=== PATIENT | female | born 1970 | race Caucasian/White ===

== ENCOUNTER → 2018-04-24 10:20 | Outpatient (CLI) | payer OTHER, SELFPAY ==
--- NOTE | 2018-04-24 10:20 | DT_ITS ---
This patient was seen during an EMR downtime April 17, 2018 - April 24, 2018. This patient may have a combination of paper and electronic documentation or all paper documentation. All documentation is viewable within the e-chart portion of [employer] for each patient visit.
[2018-05-03 11:24] LABS: HPV Reflexed? NOT INDICATED
== END ==
PROVIDERS: Family Provider Family Medicine; PCP Family Medicine; Visit Provider Family Medicine
DX: Z12.4 Encounter for screening for malignant neoplasm of cervix (principal)
CPT/HCPCS: 88175; G0145

== ENCOUNTER → 2018-04-29 09:21 | Outpatient (CLI) | payer OTHER, SELFPAY ==
--- NOTE | 2018-04-29 09:24 | BI_ITS ---
MAMMOGRAPHY - BILATERAL SCREENING REASON FOR EXAM: Female, 47 years old. Routine annual screening examination. PERTINENT HISTORY: Non-contributory. TECHNIQUE: Digital bilateral breast sergey (3D mammographic acquisition) in the CC and MLO projections. 2-D mediolateral oblique (MLO) and craniocaudad (CC) views of both breasts were obtained. CAD: Full Field Digital Mammography with Computer Added Detection was performed. COMPARISON: Comparison is made with prior examination dated September 14, 2013. FINDINGS: Breast Composition: The breasts are heterogeneously dense, which may obscure small masses. There are no dominant masses or suspicious calcifications. No other significant abnormalities are identified. There has been no significant change since the prior study. BI/SCREENING MAMM (CAD), BILAT IMPRESSION: Stable bilateral screening mammogram. Yearly follow-up mammogram recommended. (A) ASSESSMENT CATEGORY: BIRADS Category 1: Negative. A letter regarding these results will be sent to the patient by the facility within 30 days. Approximately 10% of breast cancers are not detected by mammography. A normal mammogram should not delay biopsy of a clinically suspicious abnormality. [id number] Electronically Signed: Barney Rawls MD at 9:18 EDT Tel [phone], Service support ,
== END ==
PROVIDERS: Family Provider Family Medicine; PCP Family Medicine; Visit Provider Family Medicine
DX: Z12.31 Encounter for screening mammogram for malignant neoplasm of breast (principal)
CPT/HCPCS: 77063; 77067

== ENCOUNTER → 2019-05-03 | Outpatient (CLI) | payer OTHER, SELFPAY ==
[2019-05-03 14:37] LABS: Absolute Lymphocyte Count 1.92 X10^3/ul (0.83-4.51); Absolute Neutrophil Count 3.6 X10^3/uL (2.0-7.7); Basophil# 0.03 X10^3/uL; Basophil% 0.5 % (0-1); Eosinophil# 0.13 X10^3/uL; Eosinophils% 2.1 % (0-5); Hematocrit 38.6 % (37-47); Hemoglobin 12.8 g/dl (12.0-15.0); Lymphocyte # 1.92 X10^3/ul (4.0); Lymphocyte % 31.6 % (19-41); Mean Corp Hgb Conc 33.2 g/gl (32-36); Mean Corpuscular Volume 90.6 fL (81-99); Mean Platelet Vol. 10.6 fl (6.2-12.0); Monocyte# 0.36 X10^3/uL; Monocyte% 5.9 % (0-10); Neutrophil # 3.63 X10^3/uL (2.7-7.7); Neutrophil % 59.7 % (47-70); Platelet Count 257 K/mm3 (150-450); RBC Distribution Width CV 13.3 % (11.6-14.6); RBC Distribution Width SD 43.4 fl (35.1-43.9); Red Blood Count 4.26 M/mm3 (4.2-5.4); White Blood Count 6.1 K/mm3 (4.4-11.0)
[2019-05-03 14:38] LABS: POSITIVE COUNT NO; POSITIVE DIFFERENTIAL NO; POSITIVE MORPHOLOGY NO
[2019-05-03 14:51] LABS: ALB/GLOB Ratio 1.1 RATIO (0.9-2.4); AST(SGOT) 20 U/L (15-37); Alanine Aminotransfer ALT/SGPT 22 U/L (13-56); Albumin, Serum 3.5 g/dL (3.2-5.0); Alkaline Phosphatase 86 U/L (45-117); Anion Gap 4 (5-15); BUN 15 mg/dL (7-18); BUN/Creat Ratio 14.7 RATIO (10-20); Calcium,Total 8.3 mg/dL (8.5-10.1); Chloride 105 mmol/L (98-107); Cholesterol 173 mg/dL (200); Creatinine, Serum 1.02 mg/dL (0.55-1.02); EST Glomerular Filtration Rate 61 mL/min (>60); Est Glom Filt Rate - Afr Amer 74 mL/min (>60); Globulin 3.2 g/dL (2.2-4.2); Glucose 85 mg/dL (74-106); High Density Lipoprotein 68 mg/dL; Protein, Total 6.7 g/dL (6.4-8.2); Sodium Level 137 mmol/L (136-145); Triglycerides 62 mg/dL; Very Low Density Lipoprotein 12 mg/dL (5-40)
== END | disposition home or self-care (01) ==
LOC: MTLAB 12:52
PROVIDERS: Family Provider Family Medicine; PCP Family Medicine; Referring Provider Nurse Practitioner Adult Health; Visit Provider Nurse Practitioner Adult Health
DX: R53.83 Other fatigue (principal); Z13.220 Encounter for screening for lipoid disorders
CPT/HCPCS: 36415; 80053; 80061; 84443; 85025

== ENCOUNTER → 2019-05-18 | Outpatient (CLI) | payer OTHER, SELFPAY ==
--- NOTE | 2019-05-18 12:18 | BI_ITS ---
MAMMOGRAPHY - BILATERAL SCREENING REASON FOR EXAM: Female, 48 years old. Routine annual screening examination. PERTINENT HISTORY: Non-contributory. TECHNIQUE: Digital bilateral breast katelynn (3D mammographic acquisition) in the CC and MLO projections. 2-D mediolateral oblique (MLO) and craniocaudad (CC) views of both breasts were obtained. CAD: Full Field Digital Mammography with Computer Added Detection was performed. COMPARISON: Comparison is made with prior study dated April 29, 2018. FINDINGS: Breast Composition: The breasts are heterogeneously dense, which may obscure small masses. There are no dominant masses or suspicious calcifications. No other significant abnormalities are identified. There has been no significant change since the prior study. BI/SCREEN MAMM (CAD) W/KATELYNN BILAT IMPRESSION: Stable bilateral screening mammogram. Yearly follow-up mammogram recommended. (A) ASSESSMENT CATEGORY: BIRADS Category 1: Negative. A letter regarding these results will be sent to the patient by the facility within 30 days. Approximately 10% of breast cancers are not detected by mammography. A normal mammogram should not delay biopsy of a clinically suspicious abnormality. [id number] Electronically Signed: Barney Rawls, at 14:53 EDT , Service support ,
== END | disposition home or self-care (01) ==
LOC: OPBI 12:17
PROVIDERS: Family Provider Family Medicine; PCP Family Medicine; Referring Provider Nurse Practitioner Adult Health; Visit Provider Nurse Practitioner Adult Health
DX: Z12.31 Encounter for screening mammogram for malignant neoplasm of breast (principal)
CPT/HCPCS: 77063; 77067

== ENCOUNTER → 2019-06-11 | Outpatient (CLI) | payer OTHER, SELFPAY ==
--- NOTE | 2019-06-11 08:57 | US_ITS ---
STUDY: ABDOMINAL ULTRASOUND - RIGHT UPPER QUADRANT REASON FOR VISIT: Female, 48 years old. Right-sided abdominal pain. TECHNIQUE: Ultrasound evaluation of the right upper quadrant was performed with real-time and static calle-scale imaging. TECHNICAL QUALITY: Adequate. COMPARISON: None. FINDINGS: Liver: The liver measures 14.7 cm. There is increased echogenicity consistent with fatty infiltration. The bile ducts are within normal limits. There is hepatic color flow. The direction of portal flow is hepatopetal. There is a 4.1 cm x 2.4 cm x 2.6 cm septated cyst in the dome of the right lobe of the liver. There is also evidence of a 3.2 cm x 3.3 cm x 2.9 cm cyst in the inferior aspect of the right lobe of the liver. A third cyst measuring 1.7 cm x 1.7 cm x 1 cm is seen in the left liver. Gallbladder: Normal distended gallbladder. The gallbladder wall measures 2.0 mm. There is a negative sonographic Angeles's sign. There is no pericholecystic fluid. There are no gallstones. Common Bile Duct (C.B.D.): The common bile duct measures 2.2 mm. Pancreas: Normal size of the head, body and tail of the pancreas. There is normal echogenicity of the pancreas. There is no demonstrated pancreatic mass or cyst. Right Kidney: Normal size of the right kidney. The right kidney measures 10.6 cm x 5.6 cm x 4.8 cm. Normal renal cortex. The right cortex measures 1.6 cm. There is no demonstrated renal mass or cyst. There is no right hydronephrosis. US/Abdomen Limited IMPRESSION: Hepatic cysts. Electronically Signed: Barney Rawls, at 9:42 EDT , Service support ,
== END | disposition home or self-care (01) ==
LOC: US 08:51
PROVIDERS: Family Provider Family Medicine; PCP Family Medicine; Referring Provider Nurse Practitioner Adult Health; Visit Provider Nurse Practitioner Adult Health
DX: R10.9 Unspecified abdominal pain (principal)
CPT/HCPCS: 76705

== ENCOUNTER → 2019-06-29 | Outpatient (CLI) | payer OTHER, SELFPAY ==
--- NOTE | 2019-06-29 11:03 | RAD_ITS ---
STUDY: X-RAY - LUMBAR SPINE REASON FOR EXAM: Female, 48 years old. Pain TECHNIQUE: 5 view(s) of the lumbar spine were obtained. COMPARISON: None FINDINGS: There is no evidence of fracture or dislocation in the lumbar spine. The vertebral body heights are well-maintained. Mild degenerative changes are present from the L4-S1 level. RAD/L/S Spine Min 4 Views IMPRESSION: No fracture or dislocation in the lumbar spine. Mild degenerative changes from L4 through S1. Electronically Signed: Minor Saldana, at 18:39 EDT Tel , Service support ,
== END | disposition home or self-care (01) ==
LOC: MTRAD 11:03
PROVIDERS: Family Provider Family Medicine; PCP Family Medicine; Referring Provider Family Medicine; Visit Provider Family Medicine
DX: M46.1 Sacroiliitis, not elsewhere classified (principal)
CPT/HCPCS: 72110

== ENCOUNTER → 2019-09-03 16:28 | Outpatient (CLI) | payer OTHER, SELFPAY ==
--- NOTE | 2019-09-03 16:37 | CT_ITS ---
STUDY: CT ABDOMEN AND PELVIS WITH CONTRAST REASON FOR EXAM: Female, 49 years old. Pain RADIATION DOSAGE (If Supplied By Facility): DLP = ( 960.57 ) mGycm TECHNIQUE: Transaxial images were obtained from the dome of the diaphragm to the symphysis pubis with oral contrast. 100ml ml of Isovue 370 contrast was administered. Sagittal and coronal images were reconstructed. Individualized dose optimization techniques were used for this CT. COMPARISON: None. FINDINGS: The visualized lung bases are clear. The visualized portions of the heart and pericardium are within normal limits. There are no calcified gallstones present. The liver is within normal limits. There are no suspicious hepatic lesions. Scattered hepatic cysts are present. The spleen is normal in size. The pancreas is within normal limits. The adrenal glands are within normal limits. There are no obstructing renal stones. There is no hydronephrosis. There are no focal renal lesions. Normal visualized stomach. There is no bowel obstruction or inflammation. Multiple masses are present within the uterine, likely fibroids. There are multiple bilateral adnexal cysts, measuring up to 4.4 cm on the right and 4.1 cm on the left. The aorta is normal in caliber. There is no abdominal or pelvic free air, free fluid, fluid collection or lymphadenopathy. There are no destructive osseous lesions. CT/Abdomen/Pelvis WITH Contrast IMPRESSION: Multiple masses within the uterus, likely fibroids. Multiple bilateral adnexal cysts, measuring up to 4.4 mm on the right and 4.1 cm on the left. Pelvic ultrasound and gynecological consultation is recommended for further evaluation of the above findings. Electronically Signed: Minor Saldana, at 19:20 EDT Tel , Service support ,
== END ==
PROVIDERS: Family Provider Family Medicine; PCP Family Medicine; Referring Provider Family Medicine; Visit Provider Family Medicine
DX: R10.9 Unspecified abdominal pain (principal)
CPT/HCPCS: 74177; Q9967

== ENCOUNTER 2019-09-27 08:18 | Day surgery (SDC) | payer OTHER, SELFPAY ==
--- NOTE | 2019-09-26 21:52 | PCM.HP.BLA ---
History and Physical Date of Admission: 09/27/19 Pre-Op History and Physical ? HPI: The patient is a 49 year old female presenting for pre-operative visit. She is scheduled for?laparoscopic hysterectomy, right salpingo-oophorectomy, left salpingectomy, mid urethral sling, and cystoscopy, for?menorrhagia, right ovarian cyst, chronic pelvic pain, intramural uterine fibroids, stress urinary incontinence on?09/27/19. ??Procedure discussed along with risks, benefits and complications. ?Other alternatives discussed for management. Consent form signed??Yes.? PAST MEDICAL HISTORY PAST MEDICAL HISTORY Diagnosis Date ? Abdominal pain, epigastric ? ? Esophageal reflux ? ? Non-alcoholic fatty liver disease ? ? 3 cysts on liver ? Premenopausal menorrhagia ? ? ? PAST SURGICAL HISTORY PAST SURGICAL HISTORY Procedure Laterality Date ? DELIVERY ONLY ? ? ? , low cervical x 2 ? PAST SURGICAL HISTORY OF ? ? ? left knee surgery ? REMOVAL OF TONSILS,<12 Y/O ? ? ? Tonsillectomy and adnoids ? ? CURRENT MEDICATIONS Current Outpatient Medications Medication Sig Dispense Refill ? folic acid/multivit-min/lutein (CENTRUM SILVER ORAL) Take by mouth. ? ? ? docosahexanoic acid/epa (FISH OIL ORAL) Take by mouth. ? ? ? GARLIC ORAL Take by mouth. ? ? ? PREVACID 30 MG CAP Take one(1) capsule daily. ? 0 ? No current facility-administered medications for this visit.? ? ALLERGIES:?Patient has no known allergies. ? PERSONAL HISTORY:? SOCIAL HISTORY Social History ? Tobacco Use ? Smoking status: Never Smoker ? Smokeless tobacco: Never Used Substance Use Topics ? Alcohol use: Yes ? ? Comment: 1 or 2 times a week ? Drug use: Never ? FAMILY HISTORY:? FAMILY HISTORY FAMILY HISTORY Problem Relation Age of Onset ? other (abdominal ?pain) Mother ? ? other (polyps colon) Mother ? ? Heart Father ? ? other (colonic polyps) Father ? ? Colon Cancer Maternal Aunt ? ? REVIEW OF SYMPTOMS: GENERAL: denies fevers or chills ENDOCRINOLOGY: has not been on steroids Cardiology : denies palpitations or chest pain Respiratory: denies SOB or cough Hematology: denies history of prolonged bleeding or easy bruising or VTE Allergy: Denies history of personal or family history of allergy to anesthesia ? ? PHYSICAL EXAMINATION: ? VITALS:?Last menstrual period 09/09/2019. ? GENERAL:??The patient is well nourished, well hydrated in no acute distress. ?, The patient is oriented to time, place, and person. NECK:?Supple. No lynphadenopathy, normal thyroid, no thyromegaly. LUNGS:?Clear to auscultation bilaterally. no wheezes, rhonchi or rales HEART:?Regular rate and rhythm, Normal heart sounds and No murmurs or gallops ? Pelvic US done 09/14/19 The uterus measures 14.3 x 4.9 x 7.9 cm. ?The endometrial echocomplex measures 4 mm in thickness. ?A large fibroid at the upper uterine body and fundus measures 5.6 x 4.3 x 5.4 cm. ?Portions of the remainder of the uterus are heterogeneous with possible additional fibroids although the margins are difficult to delineate. RIGHT OVARY/ADNEXA: The right ovary measures 5.2 x 2.6 x 3.2 cm. ?Complex cystic lesion measuring 3.3 x 2.4 x 2.6 cm has diffuse slight increased echogenicity and increased through transmission. LEFT OVARY/ADNEXA: The left ovary measures 3.4 x 2.7 x 3 cm. ?Simple cyst measures 1.6 x 1.2 x 1.4 cm. ? EMB- 09/19/19 proliferative endometrium PAP 05/14/18-negative ? ? IMPRESSION:?Intramural and sudden serosal uterine fibroids, menorrhagia, pelvic pain, complex right ovarian cyst, stress urinary incontinence ? PLAN:???Risks benefits and alternatives to total laparoscopic hysterectomy with bilateral salpingectomy, right oophorectomy, mid urethral sling and cystoscopy were reviewed. ?Patient's questions were answered to her satisfaction she desires to proceed. ?We discussed vaginal morecellation?or bivalving of the uterus and risks vs benefits of this.??We discussed this as an option over extending the incision and removing the uterus through mini laparotomy or morcellating in a bag laparoscopically. ?Patient would like to proceed with removal of the specimen vaginally. ? I have reviewed and updated past medical and surgical history, medications and allergies? this history and physical was completed in my office on 09/26/2019.
[2019-09-27] VITALS (7 sets, daily range): BP systolic 98–138; BP diastolic 66–89; PULSE 46–67; RESP 15–16; TEMP 36.2–37.1; O2SAT 97–100; BMI 30.2
[2019-09-27] MEDS: Lactated Ringers 1,000 ML 40 ML IV ×2 (07:00→11:49)
--- NOTE | 2019-09-27 08:30 | EKG12_ITS ---
Test Reason : PREOP Blood Pressure : / mmHG Vent. Rate : 060 BPM Atrial Rate : 060 BPM P-R Int : 164 ms QRS Dur : 090 ms QT Int : 430 ms P-R-T Axes : 043 012 044 degrees QTc Int : 430 ms Normal sinus rhythm Normal ECG Confirmed by MATT PHILLIP, BRYN ([id number]), social media editor BRONSON HARVEY ([id number]) on 10/02/2019 2:08:36 PM Referred By: Sara Fuentes Confirmed By:BRYN GUTIERREZ MD
[2019-09-27 08:47] LABS: Internal QC Validated? YES +Cl - CLEAR BKGD; Pregnancy, Urine Negative Negative
[2019-09-27 09:01] LABS: Bedside Glucose 61 mg/dL (70-110)
[2019-09-27] MEDS: Celecoxib 200 MG Capsule 400 MG PO (09:13)
[2019-09-27] MEDS: Enoxaparin 40 MG/0.4 ML Syringe SC (09:13)
[2019-09-27] MEDS: Phenazopyridine 95 MG Tablet 190 MG PO (09:14)
[2019-09-27] MEDS: Acetaminophen 500 MG Tablet 1000 MG PO (09:15)
[2019-09-27] MEDS: Gabapentin 600 MG Tablet PO (09:16)
[2019-09-27] MEDS: dexAMETHasone 10 MG/ML Vial 8 MG IV (09:22)
[2019-09-27] MEDS: Magnesium Sulfate 4gm/100mL 4 GM/100 ML IV.SOLN. IV (09:24)
[2019-09-27] MEDS: Scopolamine 1mg/72hr Patch 1 PATCH TRANSDERM. (09:30)
[2019-09-27] MEDS: Lubricating Jelly 60 GM Tube 30 GM TOPICAL (09:45)
[2019-09-27] MEDS: Cefazolin 2 GM in 0.9% Normal Saline 100 ML IV (10:17)
--- NOTE | 2019-09-27 11:20 | OP.PCM_ITS ---
Report of Operation Date of Procedure: 09/27/19 Pre-Operative Diagnosis: pelvic pain, dysmenorrhea, right ovarian cyst, TREVOR Post-Operative Diagnosis: same + endometriosis of bilateral ovaries with adhesions between cervix and rectum Surgery/Procedure Performed:: diagnostic laparascopy Description of Surgical Findings:: Enlarged boggy uterus, some adhesions of the anterior uterus to the anterior abdominal wall and bladder, dense adhesions of rectum to ovaries and tubes, fimbriated ends of tubes and ovaries could not even be clearly visualized because of adhesions. Normal-appearing cervix and vagina. sap bi architect: Glenna Pedraza Type of Anesthesia:: General Anesthesiologist: Paras Olivarez Special Medications: none Specimen's removed: none Drains: none Estimated Blood Loss (mL): 10 Fluids Replaced: 1000 cc Description of Procedure: The patient was taken to the operating room where she was prepped and draped in the dorsolithotomy position. A weighted speculum was placed in the vagina and the anterior lip of the cervix was grasped with a tenaculum. The Fahad cup uterine manipulator was placed, and inserted, and sutures attached to the cervix. The remainder of the instruments were removed from the vagina. Attention was turned to the abdomen. All port sites were infiltrated with 0.5% Marcaine before skin incisions were made. A 5 mm midline incision was made only 3 cm above the umbilicus. The anterior abdominal wall was tented up with 2 towel clamps while a 5 mm blade less trocar and sleeve were [directly inserted]. Intraperitoneal placement was confirmed with the laparoscope. The pneumoperitoneum was created and the underlying abdominal contents were intact. The patient was placed in Trendelenburg. Right and left lower quadrant ports were placed under direct visualization lateral to the inferior epigastric vessels. The bowel was swept away and the above findings were noted. After inspection of the abdominal contents, I left the room and spoke with the patient's , Endy. I discussed with him I would not feel comfortable to proceed laparoscopically. I could offer abdominal hysterectomy bilateral salpingo-oophorectomy. This may require bowel resection, or consultation with general surgery. In addition I discussed with him that I felt the most reasonable way to proceed clinically, and what I would feel most comfortable with would be finishing this is a diagnostic laparoscopy and referring the patient to minimally invasive specialist. We reviewed that if it is and alternatives to these options, and after discussion, his questions were answered to his satisfaction and he agreed with ending the procedure. The lateral ports were removed under direct visualization and no active bleeding was noted. The pneumoperitoneum was released. The skin incisions were closed with Monocryl suture in a subcuticular fashion and skin glue by Dr. Pedraza. The vaginal instruments were removed and the vaginal sweep was completed by me. The procedure was performed by me with assistance other than as dictated above. All sponge and needle counts were correct and the patient was taken to the recovery room in stable condition. Grafts/Implants Used: none - Complications none - Admit VTE Documentation VTE Present on Admission: No VTE Mechan Device Prophylaxis: SCD's VTE Pharm Prophylaxis ordered?: No
--- NOTE | 2019-09-27 11:51 | PCM.DC.TUB ---
Discharge Diet: No Restrictions - Increase fluid intake for the next 48 hours. Discharge Activity: Return to Normal Activity, May Drive - when you are no longer taking pain/narcotic meds., May Shower, May Take a Tub Bath - in 7 days Return to work on:: 10/01/19 May shower in (days): 1 May resume sexual activity in: 1 week Additional Activity Instructions:: Ambulate often the next week after surgery. Nothing in the vagina for 5 days. Call your doctor if your incision/area has: Continuous Slow Oozing, Sudden Increased Bleeding, Increased Pain/ Swelling, Increased Redness, Foul Smelling Discharge Call your doctor if you observe: Fever of 101 or Higher Cleanse incision/area with: Soap & Water, - - Your incisions have skin glue, it can get wet.; Leave it on for 10 days or until it falls off Allergies/Adverse Reactions: Allergies No Known Allergies Allergy (Verified 09/27/19 09:05) Medications to take at Discharge Garlic 1 ea PO DAILY 09/24/19 Multivitamin [Multivitamins] 1 ea PO DAILY 09/24/19 [place]-3 Fatty Acids/Fish Oil [Fish Oil 1,000 mg Capsule] 1 ea PO DAILY 09/24/19 Nitrofurantoin Monohyd/M-Cryst [Macrobid 100 mg Capsule] 100 mg PO BID 3 Days #6 cap 09/27/19 The following prescriptions were given: Nitrofurantoin Monohyd/M-Cryst [Macrobid 100 mg Capsule] 100 mg PO BID 3 Days #6 cap Transmission Status: Received by [id number] Primary Care Physician: Sharla Carranza MD [Primary Care Provider] - Test Results: Test results from this visit will be discussed in further detail at your follow-up appointment, if applicable. Please Follow Up With: Sara Fuentes MD - [phone] When: as scheduled or as needed
[2019-09-27 13:11] LABS: Bedside Glucose 78 mg/dL (70-110)
== END 2019-09-27 14:10 | disposition home or self-care (01) ==
LOC: SDC 08:18 → AC 08:19
PROVIDERS: Anesthesiology; Family Provider Family Medicine; PCP Family Medicine; Referring Provider Obstetrics & Gynecology; Visit Provider Obstetrics & Gynecology
PROC: 0UT94ZZ Resection of Uterus, Percutaneous Endoscopic Approach (ICD-10-PCS; CPT 49320; principal; 2019-09-27 09:40)
DX: N80.1 Endometriosis of ovary (principal); D25.1 Intramural leiomyoma of uterus; D25.2 Subserosal leiomyoma of uterus; N83.201 Unspecified ovarian cyst, right side; N83.202 Unspecified ovarian cyst, left side; N39.3 Stress incontinence (female) (male); K76.0 Fatty (change of) liver, not elsewhere classified
CPT/HCPCS: 00840; 49320; 36415; 81025; 82962; 86850; 86900; 86901; 86902; 86920; 86921; 86922; 93005; J7120; J2405